=== PATIENT | male | born 1990 | race Caucasian/White ===

== ENCOUNTER 2019-03-01 08:31 | Emergency (ER) | payer OTHER ==
[2019-03-01 08:38] VITALS: BP 125/80; PULSE 64; TEMP 97.6; BMI 27.8
[2019-03-01] MEDS ORDERED: ERYTHROMYCIN 0.5% OPHTHALMIC OINTMENT 3.5 GM TUBE OS ONE (09:25)
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
[2019-03-01] MEDS ORDERED: ERYTHROMYCIN 0.5% OPHTHALMIC OINTMENT 3.5 GM TUBE ONE (09:30)
== END 2019-03-01 09:34 | disposition home or self-care (01) ==
LOC: JERFT 08:31
DX: S05.01XA Injury of conjunctiva and corneal abrasion without foreign body, right eye, initial encounter (principal); W20.8XXA Other cause of strike by thrown, projected or falling object, initial encounter; Y93.89 Activity, other specified; Y92.89 Other specified places as the place of occurrence of the external cause; Y99.0 Civilian activity done for income or pay
CPT/HCPCS: 99281-25

== ENCOUNTER 2019-08-01 01:04 | Emergency (ER) | payer BC ==
[2019-08-01 01:51] VITALS: TEMP 98.3; BMI 36.8
[2019-08-01] MEDS ORDERED: morphine CARPU-JECT 4 MG/1 ML DISP.SYRIN IVPUSH ONE (01:53)
[2019-08-01] MEDS ORDERED: ONDANSETRON 4 MG/2 ML VIAL IVPUSH ONE (01:54)
--- NOTE | 2019-08-01 01:55 | PDOC ---
Attending Attestation - Resident Resident Name: Abdirizak Chu - ED Attending Attestation I have performed the following: I have examined & evaluated the patient, The case was reviewed & discussed with the resident, I agree w/resident's findings & plan - HPI HPI: 08/01/19 02:39 Pt has dysuria x 4 hrs and constant sharp pain in the testicles. No penile discharge. No testicular torsion seen on bedisde sono. No constipation and no flank pain. Pt has LLQ pain, and left groin pain. 08/01/19 06:04 Pt has hematuria and no urine infection or sign of STD; Pt had a CT abd pelvis to look for kidney stone. - Physicial Exam PE: 08/01/19 06:04 Agree with residene exam - Medical Decision Making 08/01/19 06:04 Home with NSAIDS; follow with PMD/urology; drink more water.
[2019-08-01] MEDS ORDERED: ONDANSETRON 4 MG/2 ML VIAL ONE (02:01)
[2019-08-01] MEDS ORDERED: morphine SULFATE 4 MG/ML VIAL ONE (02:01)
[2019-08-01] MEDS ORDERED: SODIUM CHLORIDE 1,000 ML IV STA (02:58)
[2019-08-01] MEDS ORDERED: ACETAMINOPHEN 1000 MG/100 ML VIAL (NON FORMULARY) IVPB ONE (02:58)
[2019-08-01] MEDS ORDERED: ACETAMINOPHEN INJECTION 100 ML IVPB ONE (03:18)
[2019-08-01 03:29] LABS: HYALINE CASTS 6 /lpf (0-8); PH,URINE >= 9.0 (5.0-8.0); URINE APPEARANCE Error; URINE BACTERIA 5.1 /hpf (NEGATIVE); URINE BILIRUBIN NEGATIVE (NEGATIVE); URINE COLOR YELLOW; URINE GLUCOSE (UA) NEGATIVE (NEGATIVE); URINE KETONE TRACE (NEGATIVE); URINE LEUK ESTERASE NEGATIVE (NEGATIVE); URINE NITRITE NEGATIVE (NEGATIVE); URINE PROTEIN NEGATIVE (NEGATIVE); URINE RBC 23 /hpf (0-4); URINE UROBILINOGEN 0.2 mg/dL (0.2-1.0); URINE WBC 0 /hpf (0-5)
[2019-08-01 03:32] LABS: BASO % 0.3 % (0-2.0); EOS % 0.2 % (0-4.5); HEMOGLOBIN 15.3 GM/dL (11.7-16.9); LYMPH % 12.2 % (8-40); MCH 30.3 pg (25.7-33.7); MCHC 34.8 g/dl (32.0-35.9); MEAN CELL VOLUME 87.1 fl (80-96); MEAN PLT VOLUME 10.6 fl (7.5-11.1); MONO % 5.4 % (3.8-10.2); NEUT % 81.9 % (42.8-82.8); PLATELET COUNT 197 K/MM3 (134-434); RBC 5.05 M/mm3 (4.00-5.60); WHITE BLOOD COUNT 11.6 K/mm3 (4.0-10.0)
[2019-08-01 04:09] LABS: ALBUMIN 4.9 g/dl (3.4-5.0); BILIRUBIN,TOTAL 0.6 mg/dL (0.2-1); BLOOD UREA NITROGEN 22.3 mg/dL (7-18); CREATININE 1.5 mg/dL (0.55-1.3); POTASSIUM 3.7 mmol/L (3.5-5.1); TOT PROT 8.1 g/dl (6.4-8.2)
[2019-08-01 04:48] LABS: URINE CRYSTALS AMORPHOUS URATES /hpf
[2019-08-01] MEDS ORDERED: TAMSULOSIN HCL 0.4 MG CAP PO ONE (05:50)
[2019-08-01] MEDS ORDERED: KETOROLAC TROMETHAMINE 30 MG/1 ML VIAL IVPUSH ONE (05:50)
[2019-08-01] MEDS ORDERED: TAMSULOSIN HCL 0.4 MG CAP ONE (05:52)
[2019-08-01] MEDS ORDERED: KETOROLAC TROMETHAMINE 30 MG/1 ML VIAL ONE (05:52)
--- NOTE | 2019-08-01 06:16 | PDOC ---
History of Present Illness - General Chief Complaint: Pain Stated Complaint: NAUSEA/ABD PAIN Time Seen by Provider: 08/01/19 01:54 History Source: Patient Exam Limitations: No Limitations - History of Present Illness Initial Comments: 08/01/19 15:27 29 yo M with no past medical history presents to the emergency department with sudden onset of LLQ/left groin pain. Denies prior pain in this area. States the pain is sharp, constant, radiating to the left groin, with associative nausea and non bloody non billious vomiting. Endorses a previous appendectomy. Denies previous pathology, denies nephrolithiasis. Endorses dysuria that began today. Denies trauma. Allergies: NKDA Social: Denies tobacco, alcohol, and substance abuse Shx: Refer to above Med hx: Refer to above Past History - Past Medical History Allergies/Adverse Reactions: Allergies Allergy/AdvReac Type Severity Reaction Status Date / Time No Known Allergies Allergy Verified 08/01/19 01:51 Home Medications: Ambulatory Orders Tamsulosin HCl [Flomax] 0.4 mg PO DAILY #3 capsule 08/01/19 COPD: No - Surgical History Appendectomy: Yes - Suicide/Smoking/Psychosocial Hx Smoking History: Never smoked Have you smoked in the past 12 months: No Hx Alcohol Use: No Drug/Substance Use Hx: No Review of Systems - Review of Systems Able to Perform ROS?: Yes Is the patient limited Lao proficient: No Constitutional: No: Chills, Diaphoresis, Fever, Weakness HEENTM: No: Blurred Vision, Ear Pain, Nose Pain, Throat Pain, Mouth Pain Respiratory: No: Cough, Shortness of Breath, Hemoptysis Cardiac (ROS): No: Chest Pain, Lightheadedness, Palpitations, Syncope ABD/GI: Yes: Nausea, Vomiting. No: Constipated, Diarrhea, Rectal Bleeding, Tarry Stools : Yes: Dysuria, Testicular Pain. No: Burning, Hematuria, Incontinence Musculoskeletal: No: Back Pain, Joint Pain, Neck Pain Integumentary: No: Bruising, Erythema, Rash Neurological: No: Headache, Numbness, Tingling, Tremors Psychiatric: No: Change in Appetite Endocrine: No: Unexplained Weight Gain Hematologic/Lymphatic: No: Anemia *Physical Exam - Vital Signs Last Vital Signs Temp Pulse Resp BP Pulse Ox 98.3 F 88 19 137/91 97 08/01/19 01:04 08/01/19 01:04 08/01/19 01:04 08/01/19 01:04 08/01/19 01:04 - Physical Exam General Appearance: Yes: Nourished, Appropriately Dressed. No: Apparent Distress, Intoxicated HEENT: positive: EOMI, FERMIN, Normal Voice, Symmetrical, Pharynx Normal, Hearing Grossly Normal. negative: Pale Conjunctivae, Scleral Icterus (R), Scleral Icterus (L), Muffled/Hoarse voice, Pharyngeal Erythema, Tonsillar Exudate, Tonsillar Erythema, Nasal Congestion, Rhinorrhea, Excessive drooling Neck: positive: Trachea midline, Supple. negative: Tender, Lymphadenopathy (R) , Lymphadenopathy (L), Tender lateral, Tender midline Respiratory/Chest: positive: Lungs Clear, Normal Breath Sounds. negative: Chest Tender, Respiratory Distress, Accessory Muscle Use, Crackles, Rales, Rhonchi, Stridor, Wheezing Cardiovascular: positive: Regular Rhythm, Regular Rate, S1, S2. negative: Systolic Murmur Gastrointestinal/Abdominal: positive: Normal Bowel Sounds, Tender (LLQ), Flat, Soft Male Genitalia: positive: normal genitalia. negative: discharge, testicular tenderness, epididymus tender, inguinal hernia, hematuria Lymphatic: negative: Adenopathy Musculoskeletal: positive: Normal Inspection. negative: CVA Tenderness, Vertebral Tenderness Extremity: positive: Normal Capillary Refill, Normal Inspection, Normal Range of Motion. negative: Tender Integumentary: positive: Normal Color, Dry, Warm. 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 NML intact, Fully Oriented, Alert, Normal Mood/ Affect ED Treatment Course - LABORATORY CBC & Chemistry Diagram: 08/01/19 03:15 08/01/19 03:15 - ADDITIONAL ORDERS Additional order review: Laboratory Results 08/01/19 08/01/19 08/01/19 03:15 03:10 02:13 Sodium 139 Potassium 3.7 Chloride 106 Carbon Dioxide 25 Anion Gap 8 BUN 22.3 H Creatinine 1.5 H Est GFR (CKD-EPI)AfAm 72.90 Est GFR (CKD-EPI)NonAf 62.90 Random Glucose 105 Lactic Acid 1.9 Calcium 10.0 Total Bilirubin 0.6 AST 16 ALT 24 Alkaline Phosphatase 93 Total Protein 8.1 Albumin 4.9 Urine Color Yellow Urine Appearance Error Urine pH >= 9.0 H D Ur Specific Lando 1.023 Urine Protein Negative Urine Glucose (UA) Negative Urine Ketones Trace H Urine Blood 1+ H Urine Nitrite Negative Urine Bilirubin Negative Urine Urobilinogen 0.2 Ur Leukocyte Esterase Negative Urine WBC (Auto) 0 Urine RBC (Auto) 23 Urine Casts (Auto) 6 U Epithel Cells (Auto) 5.0 U Sm Round Cell (Auto) None Urine Crystals (Auto) Amorphous urates Urine Bacteria (Auto) 5.1 08/01/19 03:15 RBC 5.05 MCV 87.1 MCHC 34.8 RDW 13.0 MPV 10.6 Neutrophils % 81.9 D Lymphocytes % 12.2 D Monocytes % 5.4 Eosinophils % 0.2 Basophils % 0.3 - Medications Given in the ED: ED Medications Discontinued Medications Generic Name Dose Route Start Last Admin Trade Name Freq PRN Reason Stop Dose Admin Acetaminophen 1,000 mg 08/01/19 02:58 08/01/19 03:24 Ofirmev Injection - IVPB 08/01/19 02:59 1,000 mg ONCE ONE Administration Sodium Chloride 1,000 mls @ 1,000 mls/hr 08/01/19 02:58 08/01/19 03:23 Normal Saline - IV 08/01/19 03:57 1,000 mls/hr ASDIR STA Administration Ketorolac Tromethamine 30 mg 08/01/19 05:50 08/01/19 05:58 Toradol Injection - IVPUSH 08/01/19 05:51 30 mg ONCE ONE Administration Morphine Sulfate 4 mg 08/01/19 01:53 08/01/19 02:17 Morphine Injection - IVPUSH 08/01/19 01:54 4 mg ONCE ONE Administration Ondansetron HCl 4 mg 08/01/19 01:54 08/01/19 02:18 Zofran Injection IVPUSH 08/01/19 01:55 4 mg ONCE ONE Administration Tamsulosin HCl 0.4 mg 08/01/19 05:50 08/01/19 05:58 Flomax - PO 08/01/19 05:51 0.4 mg ONCE ONE Administration Medical Decision Making - Medical Decision Making 29 yo M with no past medical history presents to the emergency department with sudden onset of LLQ/left groin pain. Initial vitals: Initial Vital Signs Temp Pulse Resp BP Pulse Ox 98.3 F 88 19 137/91 97 08/01/19 01:04 08/01/19 01:04 08/01/19 01:04 08/01/19 01:04 08/01/19 01:04 Work up: ddx: testicular torsion vs epididymitits vs colitits vs nephrolithiasis vs UTI vs STD POCUS shows no enhancement of epididymitis making epididymitits less likely. adequate blood flow noted in the testes bilaterally, unlikely to have testicular torsion. will order cbc, cmp, ua, urine culture, gc urine, lactic acid. will give 4 mg of morphine and 4 mg of zofran with 1 L of NS Laboratory Tests 08/01/19 08/01/19 08/01/19 02:13 03:10 03:15 WBC 11.6 H RBC 5.05 Hgb 15.3 Hct 44.0 MCV 87.1 MCH 30.3 MCHC 34.8 RDW 13.0 Plt Count 197 MPV 10.6 Absolute Neuts (auto) 9.5 H Neutrophils % 81.9 D Lymphocytes % 12.2 D Monocytes % 5.4 Eosinophils % 0.2 Basophils % 0.3 Nucleated RBC % 0 Sodium Potassium Chloride Carbon Dioxide Anion Gap BUN Creatinine Est GFR (CKD-EPI)AfAm Est GFR (CKD-EPI)NonAf Random Glucose Lactic Acid 1.9 Calcium Total Bilirubin AST ALT Alkaline Phosphatase Total Protein Albumin Urine Color Yellow Urine Appearance Error Urine pH >= 9.0 H D Ur Specific Lando 1.023 Urine Protein Negative Urine Glucose (UA) Negative Urine Ketones Trace H Urine Blood 1+ H Urine Nitrite Negative Urine Bilirubin Negative Urine Urobilinogen 0.2 Ur Leukocyte Esterase Negative Urine WBC (Auto) 0 Urine RBC (Auto) 23 Urine Casts (Auto) 6 U Epithel Cells (Auto) 5.0 U Sm Round Cell (Auto) None Urine Crystals (Auto) Amorphous urates Urine Bacteria (Auto) 5.1 08/01/19 03:15 WBC RBC Hgb Hct MCV MCH MCHC RDW Plt Count MPV Absolute Neuts (auto) Neutrophils % Lymphocytes % Monocytes % Eosinophils % Basophils % Nucleated RBC % Sodium 139 Potassium 3.7 Chloride 106 Carbon Dioxide 25 Anion Gap 8 BUN 22.3 H Creatinine 1.5 H Est GFR (CKD-EPI)AfAm 72.90 Est GFR (CKD-EPI)NonAf 62.90 Random Glucose 105 Lactic Acid Calcium 10.0 Total Bilirubin 0.6 AST 16 ALT 24 Alkaline Phosphatase 93 Total Protein 8.1 Albumin 4.9 Urine Color Urine Appearance Urine pH Ur Specific Lando Urine Protein Urine Glucose (UA) Urine Ketones Urine Blood Urine Nitrite Urine Bilirubin Urine Urobilinogen Ur Leukocyte Esterase Urine WBC (Auto) Urine RBC (Auto) Urine Casts (Auto) U Epithel Cells (Auto) U Sm Round Cell (Auto) Urine Crystals (Auto) Urine Bacteria (Auto) mild leukocytosis with blood in the urine without infection with >9 pH. possibly secondary to proteus calculi. CT abdomen and pelvis shows 6 mm stone in the UVJ on left side with mild left hydronephrosis. gave toradol, flomax, and referral for follow up. patient to be discharged. Dispo: Discharge *DC/Admit/Observation/Transfer Diagnosis at time of Disposition: Nephrolithiasis - Discharge Dispostion Disposition: HOME Condition at time of disposition: Fair Decision to Admit order: No - Prescriptions Prescriptions: Tamsulosin HCl [Flomax] 0.4 mg PO DAILY #3 capsule - Referrals Referrals: Barry Owens MD [Staff Physician] - - Patient Instructions - Post Discharge Activity
[2019-08-01 06:19] VITALS: BP 122/69; PULSE 97
== END 2019-08-01 06:39 | disposition home or self-care (01) ==
LOC: JER 01:04
PROC: 3E0337Z Introduction of Electrolytic and Water Balance Substance into Peripheral Vein, Percutaneous Approach (ICD-10-PCS; principal; 2019-08-01)
PROC: 3E033NZ Introduction of Analgesics, Hypnotics, Sedatives into Peripheral Vein, Percutaneous Approach (ICD-10-PCS; 2019-08-01)
PROC: 3E033NZ Introduction of Analgesics, Hypnotics, Sedatives into Peripheral Vein, Percutaneous Approach (ICD-10-PCS; 2019-08-01)
PROC: 3E0333Z Introduction of Anti-inflammatory into Peripheral Vein, Percutaneous Approach (ICD-10-PCS; 2019-08-01)
PROC: 3E033GC Introduction of Other Therapeutic Substance into Peripheral Vein, Percutaneous Approach (ICD-10-PCS; 2019-08-01)
PROC: BV44ZZZ Ultrasonography of Scrotum (ICD-10-PCS; 2019-08-01)
DX: N13.2 Hydronephrosis with renal and ureteral calculous obstruction (principal)
CPT/HCPCS: 36415; 74176-TC; 80053; 81003; 83605; 85025; 87086; 87491; 87591; 99283-25; J0131; J7030

== ENCOUNTER 2020-06-25 10:37 | Emergency (ER) | payer BC ==
[2020-06-25] MEDS ORDERED: KETOROLAC TROMETHAMINE 30 MG/1 ML VIAL IVPUSH ONE (10:55)
[2020-06-25] MEDS ORDERED: SODIUM CHLORIDE 0.9% 500 ML INFUS.BAG IV ONE (10:55)
[2020-06-25] MEDS ORDERED: KETOROLAC TROMETHAMINE 30 MG/1 ML VIAL ONE (10:57)
[2020-06-25 10:58] VITALS: BP 131/62; TEMP 98.2; BMI 23.0
--- NOTE | 2020-06-25 11:08 | PDOC ---
History of Present Illness - General Chief Complaint: Pain, Acute Stated Complaint: RT SIDE ABD PAIN Time Seen by Provider: 06/25/20 10:48 History Source: Patient Exam Limitations: No Limitations - History of Present Illness Initial Comments: 06/25/20 11:08 30M PMH kidney stones presenting with sudden onset constant right flank pain that started 2 hours ago while pt was laying in bed. Endorses chills and hematuria. Denies n/v, fevers, cp/sob. h/o appendicitis s/p appendectomy. Past History - Medical History Allergies/Adverse Reactions: Allergies Allergy/AdvReac Type Severity Reaction Status Date / Time No Known Allergies Allergy Verified 06/25/20 10:43 Home Medications: Ambulatory Orders Tamsulosin HCl [Flomax] 0.4 mg PO DAILY #3 capsule 08/01/19 COPD: No - Surgical History Appendectomy: Yes - Psycho-Social/Smoking History Smoking History: Never smoked Have you smoked in the past 12 months: No - Substance Abuse Hx (Audit-C & DAST Scrn) How often the patient has a drink containing alcohol: Never Score: In Men: 4 or > Positive; In Women: 3 or > Positive: 0 Screen Result (Pos requires Nsg. Audit-10AR): Negative In the last yr the pt used illegal drug/Rx for NonMed reason: No Score: Yes response is considered Positive: 0 Screen Result (Positive result requires Nsg. DAST-10): Negative Review of Systems - Review of Systems Comments:: 06/26/20 07:59 CONSTITUTIONAL: +chills Denies fevers HEENT: Denies headache, sore throat, rhinorrhea RESP: Denies SOB, cough CARD: Denies chest pain GI: + right flank pain. Denies N / V / D : + hematuria. Denies dysuria, frequency NEURO: Denies numbness, tingling, weakness MSK: Denies back pain SKIN: Denies rashes *Physical Exam - Vital Signs Last Vital Signs Temp Pulse Resp BP Pulse Ox 98.2 F 69 32 H 131/62 99 06/25/20 10:43 06/25/20 10:43 06/25/20 10:43 06/25/20 10:43 06/25/20 10:43 - Physical Exam 06/26/20 07:59 GEN: distressed 2/2 pain. AAOx3. HEENT: NC/AT, EOMI, PERRL. No facial asymmetry. Moist mucous membranes. Normal voice. Supple neck w/ FROM. CV: S1/S2, RRR, no m/r/g LUNG: CTAB, no wheezes, crackles, rales, rhonchi. GI: +TTP right sided; soft, nd, +BS, no guarding, no rebound. No masses. Neg CVAT b/l. MSK: No obvious deformities of all extremities. SKIN: Warm, dry, no rashes appreciated. PSYCH: anxious NEURO: Moving all extremities well. ED Treatment Course - LABORATORY CBC & Chemistry Diagram: 06/25/20 10:25 06/25/20 10:25 Medical Decision Making - Medical Decision Making 06/26/20 07:59 30M PMH kidney stones presenting with sudden onset right flank pain. Likely renal stone - CBC, CMP - UA, UC - Toradol - Fluids - Renal US 06/25/20 12:01 pt vomiting and still w/ pain s/p toradol; morphine and zofran added POCUS demonstrating mild right renal pelvic hydronephrosis; stone visualized at the right UVJ; f/u report flomax, fluids 06/25/20 13:44 pt w/ significant symptomatic relief s/p meds labs reviewed dc home w/ pcp f/u and return precautions Discharge - Discharge Information Problems reviewed: Yes Clinical Impression/Diagnosis: Right kidney stone Condition: Stable Disposition: HOME - Admission No - Follow up/Referral Referrals: ON STAFF,NOT [Primary Care Provider] - - Patient Discharge Instructions Patient Printed Discharge Instructions: DI for Kidney Stones Additional Instructions: Take 400-600mg ibuprofen every 8 hours for pain control. Drink plenty of fluids. We expect your stone to pass on its own in the next few days. Follow up with your Primary Care Doctor regarding this ED visit in the next 5-7 days. Return to the nearest Emergency Department if you experience new or worsening symptoms, including but not limited to: - fevers - worsening pain - anything that concerns you - Post Discharge Activity
[2020-06-25 11:17] LABS: BASO % 0.6 % (0-2.0); EOS % 0.9 % (0-4.5); HEMATOCRIT 43.5 % (35.4-49); LYMPH % 40.6 % (8-40); MCHC 34.4 g/dl (32.0-35.9); MEAN PLT VOLUME 10.6 fl (7.5-11.1); MONO % 5.8 % (3.8-10.2); NEUT % 52.1 % (42.8-82.8); PLATELET COUNT 216 K/MM3 (134-434); RBC 4.83 M/mm3 (4.00-5.60); RDW 13.2 % (11.9-15.9); WHITE BLOOD COUNT 9.8 K/mm3 (4.0-10.0)
--- NOTE | 2020-06-25 11:26 | PDOC ---
Documentation entered by Marcos Fontenot SCRIBE, acting as scribe for Dora Quispe MD. Dora Quispe MD: This documentation has been prepared by the everePo Aaron, SCRIBE, under my direction and personally reviewed by me in its entirety. I confirm that the documentation accurately reflects all work, treatment, procedures, and medical decision making performed by me. Attending Attestation - Resident Resident Name: AyalaOmid - ED Attending Attestation I have performed the following: I have examined & evaluated the patient, The case was reviewed & discussed with the resident, I agree w/resident's findings & plan - HPI HPI: The patient is a 30 year old male with a significant PMH of kidney stones and appendicitis who presents to the emergency department with sudden onset acute R sided flank pain for the last two hours. Patient reports associated chills and hematuria. The patient denies nausea and vomiting. Patient denies any other related symptoms. Allergies: NKDA Past surgical history: appendectomy Social Hx: Denies tobacco, alcohol, and substance abuse PCP: Dr. Alvarez ([facility]) - Physicial Exam PE: 06/25/20 11:25 awake alert lungs clear bilat heart rrr no mrg abd soft nt nd ext wwp. no cva tenderness. ext wwp. no edema. nuero alert oriented x 3. - Medical Decision Making 06/25/20 11:25 30 yo M h/;o renal colic here with 2 hours right flank pain, similar to prior stones with hemtaria. plan pocus, to avoid radiation eval for hydronephrosis. pain control iv hydration. basic labs. 06/25/20 12:30 limited us renal shows mild right hydronephrosis consistent with renal colic. pain control reassess. dc with urology fu. Discharge - Discharge Information Problems reviewed: Yes Clinical Impression/Diagnosis: Right kidney stone Condition: Stable Disposition: HOME - Follow up/Referral Referrals: ON STAFF,NOT [Primary Care Provider] - - Patient Discharge Instructions Patient Printed Discharge Instructions: DI for Kidney Stones Additional Instructions: Take 400-600mg ibuprofen every 8 hours for pain control. Drink plenty of fluids. We expect your stone to pass on its own in the next few days. Follow up with your Primary Care Doctor regarding this ED visit in the next 5-7 days. Return to the nearest Emergency Department if you experience new or worsening symptoms, including but not limited to: - fevers - worsening pain - anything that concerns you - Post Discharge Activity
[2020-06-25] MEDS ORDERED: ONDANSETRON 4 MG/2 ML VIAL IVPUSH ONE (11:29)
[2020-06-25] MEDS ORDERED: morphine CARPU-JECT 2 MG/1 ML DISP.SYRIN IVPUSH ONE (11:29)
[2020-06-25] MEDS ORDERED: MORPHINE SULFATE 2 MG/ML VIAL ONE (11:31)
[2020-06-25 11:36] LABS: ALBUMIN 4.5 g/dl (3.4-5.0); BLOOD UREA NITROGEN 19.4 mg/dL (7-18); CALCIUM 9.8 mg/dL (8.5-10.1); CREATININE 1.4 mg/dL (0.55-1.3); POTASSIUM 3.4 mmol/L (3.5-5.1); TOT PROT 7.6 g/dl (6.4-8.2)
[2020-06-25] MEDS ORDERED: TAMSULOSIN HCL 0.4 MG CAP PO ONE (11:52)
[2020-06-25] MEDS ORDERED: TAMSULOSIN HCL 0.4 MG CAP ONE (11:55)
[2020-06-25] MEDS ORDERED: LACTATED RINGERS SOLUTION 1000 ML INFUS.BAG IV ONE (12:04)
[2020-06-25 12:59] LABS: EPI CELLS 17 /uL (0-25.1); HYALINE CASTS 1 /uL (0-3.1); PH,URINE >= 9.0 (5.0-8.0); URINE APPEARANCE CLEAR; URINE BACTERIA 10 /uL (0-1359); URINE BILIRUBIN NEGATIVE (NEGATIVE); URINE COLOR YELLOW; URINE GLUCOSE (UA) NEGATIVE (NEGATIVE); URINE KETONE TRACE (NEGATIVE); URINE LEUK ESTERASE NEGATIVE (NEGATIVE); URINE NITRITE NEGATIVE (NEGATIVE); URINE PROTEIN NEGATIVE (NEGATIVE); URINE RBC 195 /uL (0-23.9); URINE UROBILINOGEN 0.2 mg/dL (0.2-1.0); URINE WBC 3 /uL (0-25.8)
[2020-06-25 13:52] VITALS: PULSE 80
== END 2020-06-25 13:52 | disposition home or self-care (01) ==
LOC: SUPCPDRO 10:37 → JER 10:37
DX: N20.0 Calculus of kidney (principal)
CPT/HCPCS: 36415; 76775; 80053; 81003; 85025; 87086; 99285-25

== ENCOUNTER 2022-05-16 11:22 | Emergency (ER) | payer OTHER ==
[2022-05-16 11:49] VITALS: BP 130/78; PULSE 68; TEMP 98.8; BMI 23.7
[2022-05-16] MEDS ORDERED: DEXAMETHASONE SOD PHOSPHATE 10 MG/1 ML VIAL IM ONE (13:13)
== END 2022-05-16 13:44 | disposition home or self-care (01) ==
LOC: JERFT 11:22
DX: S60.416A Abrasion of right little finger, initial encounter (principal); W22.8XXA Striking against or struck by other objects, initial encounter
CPT/HCPCS: 73130-TC-RT-FY; 99283-25